=== PATIENT | male | born 1940 | race Caucasian/White ===

== ENCOUNTER → 2021-04-02 14:08 | Outpatient (BNVA) | payer MEDICARE, SELFPAY | PROVIDERS: PCP Internal Medicine; Visit Provider Surgery | DX: K40.90 Unilateral inguinal hernia, without obstruction or gangrene, not specified as recurrent (principal) | CPT/HCPCS: 99212 ==

== ENCOUNTER 2021-05-13 07:24 | Day surgery (SDC) | payer MEDICARE, SELFPAY ==
[2021-05-07 10:07] VITALS: BMI 27.3
--- NOTE | 2021-05-12 10:16 | P.CONAN_ITS ---
Documented by User: Aubrie Sal NP 05/12/21 10:17 HPI - Anesthesia Eval Consult details Narrative: 81yo M for Left Hernia Repair Inguinal PMFSH Active Problems Active Problems: All Active Problems (Updated 05/07/21 @ 10:06 by Audrey Cabrera RN) Left inguinal hernia (Acute) Past Medical History Medical History (Updated 05/07/21 @ 10:06 by Audrey Cabrera RN) Anxiety and depression Arthritis BPH (benign prostatic hyperplasia) Elevated cholesterol HTN (hypertension) Left inguinal hernia Surgical History Surgical History (Updated 05/07/21 @ 10:06 by Audrey Cabrera RN) History of right inguinal hernia repair Hx of colonoscopy Hx of repair of rotator cuff Hx of total knee arthroplasty Social History Social History (Updated 05/07/21 @ 10:07 by Audrey Cabrera RN) Alcohol intake: current Alcohol intake frequency: a few times a week Alcohol type: beer Patient Tobacco Use Status: Former Tobacco user Quit Date: Are you DNR?: No Advance Directives: No (will bring copy dos) Advance Directives Information Provided: No Advance Directives on File: No Recently lost weight without trying: No Poor oral hygiene: No (full dentures) Meds Allergies Allergy/AdvReac Type Severity Reaction Status Date / Time Vicodin AdvReac Intermediate itching Uncoded 05/13/21 08:29 Home Medications Medication Instructions Recorded Confirmed Last Taken Type atorvastatin 40 mg tablet 40 mg PO DAILY 04/02/21 05/07/21 Unknown History escitalopram oxalate 5 mg tablet 5 mg PO DAILY 04/02/21 05/07/21 Unknown History gabapentin 600 mg tablet 600 mg PO TID PRN 04/02/21 05/07/21 Unknown History lisinopril 40 mg tablet 40 mg PO DAILY 04/02/21 05/07/21 Unknown History tamsulosin 0.4 mg capsule 0.4 mg PO DAILY 04/02/21 05/07/21 Unknown History trazodone 50 mg tablet 25 - 50 mg PO BEDTIME PRN 04/02/21 05/07/21 Unknown History Exam Exam Date and Time: May 12, 2021 1016 Height,Weight and Vital Signs: Height 5 ft 8 in Weight 81.647 kg Assessment and Plan Assessment Anesthesia Assessment: Chart Reviewed Documented by User: Brady Hidalgo MD 05/13/21 08:37 [facility] Past Medical History Medical History (Updated 05/07/21 @ 10:06 by Audrey Cabrera RN) Anxiety and depression Arthritis BPH (benign prostatic hyperplasia) Elevated cholesterol HTN (hypertension) Left inguinal hernia Family History Family history of problems with anesthesia: No Surgical History Surgical History (Updated 05/07/21 @ 10:06 by Audrey Cabrera RN) History of right inguinal hernia repair Hx of colonoscopy Hx of repair of rotator cuff Hx of total knee arthroplasty History of Problems with Anesthesia: No Social History Social History (Updated 05/07/21 @ 10:07 by Audrey Cabrera RN) Alcohol intake: current Alcohol intake frequency: a few times a week Alcohol type: beer Patient Tobacco Use Status: Former Tobacco user Quit Date: Are you DNR?: No Advance Directives: No (will bring copy dos) Advance Directives Information Provided: No Advance Directives on File: No Recently lost weight without trying: No Poor oral hygiene: No (full dentures) Meds Allergies Allergy/AdvReac Type Severity Reaction Status Date / Time Vicodin AdvReac Intermediate itching Uncoded 05/13/21 08:29 Home Medications Medication Instructions Recorded Confirmed Last Taken Type atorvastatin 40 mg tablet 40 mg PO DAILY 04/02/21 05/07/21 Unknown History escitalopram oxalate 5 mg tablet 5 mg PO DAILY 04/02/21 05/07/21 Unknown History gabapentin 600 mg tablet 600 mg PO TID PRN 04/02/21 05/07/21 Unknown History lisinopril 40 mg tablet 40 mg PO DAILY 04/02/21 05/07/21 Unknown History tamsulosin 0.4 mg capsule 0.4 mg PO DAILY 04/02/21 05/07/21 Unknown History trazodone 50 mg tablet 25 - 50 mg PO BEDTIME PRN 04/02/21 05/07/21 Unknown History Exam Airway Mallampati Class: I TM Dist: >3cm Neck ROM: Full Denture: Upper Partial: Lower Heart: ok Lungs: ok Assessment and Plan Final Anesthetic Review Family History of Problems with Anesthesia: No History of Problems with Anesthesia: No ASA Class: III Final Preanesthetic Review: No Changes in Pt Med Stat, Meds/Allgs Chart Reviewed, Consent Obtained/Reviewed and Anes Risks/Benef Reviewed Patient Risk: Intermediate Procedure Risk: Low Anesthetic Plan Anesthetic Plan: GA and Agree w/ Assess. and Plan Disposition: Standard PACU
[2021-05-13] VITALS (14 sets, daily range): BP systolic 80–152; BP diastolic 44–82; PULSE 38–67; RESP 10–18; TEMP 36.2–36.8; O2SAT 91–97; BMI 27.5
[2021-05-13] MEDS: Lactated Ringers 1,000 ML 100 ML IVCONT (07:45)
--- NOTE | 2021-05-13 08:14 | MHC.SHP ---
Pre-Procedural Eval Section A Date of Service: 05/13/21 Section B Chief Complaint: Left Inguinal hernia Details of Present Illness: reducible mass on left groin cw inguinal hernia Relevant Family History (Specify if Yes): No Relevant Social History: None Present Medications: see Short Stay Collaborative assessment Medical History: Significant History (HTN, BPH, hyperlipidemia) History of Previous Operations: No relevant previous surgery Allergies: Allergies Allergy/AdvReac Type Severity Reaction Status Date / Time Vicodin Allergy Intermediate itching Uncoded 05/07/21 10:11 Review of Systems Sugical H&P ROS: Negative: Constitution, Cardiovascular, Respiratory, Neurological, Psychiatric, Hem-Onc, Allergic/Immunologic, Gastrointestinal, Genitourinary, Musculoskeletal, Integumentary, Endocrine and Eyes/Ears/Nose/Throat Exam Surgical H&P Exam: Normal: HEENT, Normal: Heart, Normal: Lungs, Normal: Extremities, Normal: Skin and Normal: Neurological and Significant Findings: Abdomen (Reducible mass, left groin) Plan Diagnosis/Plan: Unchanged I have reviewed the history and physical and performed a pertinent physical examination on my patient. No changes have occurred unless specified.
--- NOTE | 2021-05-13 09:26 | P.OP_ITS ---
Operative Note Operative Note Date of Service: 05/13/21 Narrative: Preop diagnosis: Left inguinal hernia Postop diagnosis: Left inguinal hernia, indirect Procedure: Repair of left inguinal hernia, with mesh Surgeon: Jayme Butterfield MD orthopedic assistant: MORENA Foley The patient is an 81-year-old male with a reducible mass on the left groin consistent with a left inguinal hernia. He wanted to proceed with repair. He understood the technique of repair with mesh. He was for the risks, benefits, and alternatives Was brought the operating placed supine the table under general anesthesia laryngeal mask airway. The left groin was prepped and draped in the usual steri le fashion. A surgical time-out was done. The patient received cefazolin 2 g IV preoperatively. I infiltrated the planned line of incision using lidocaine 1%. I made a short incision in the skin along an imaginary line from the anteriorsuperior iliac spine to the pubic ramus using blade 15. This was carried down through the full- thickness skin subcutaneous fat with electrocautery down to the external oblique aponeurosis. I exposed the external oblique aponeurosis and bluntly dissected this to define the external ring. I made an incision on the bursa of the external oblique aponeurosis using blade 15. This extended inferomedially to connect with the external ring. The inguinal canal was therefore entered. Applied hemostats on the edges of the divided external oblique aponeurosis. I bluntly dissected the underside of the aponeurosis to create space for the mesh. I then proceeded to bluntly dissect the spermatic cord and its contents using my index finger until was able to pass a Jose drain around this. This Jose drain was used for retraction. I examined the spermatic cord and its contents. I was able to identify the vas deferens and its accompanying vessels. By blunt dissection, as able to identify the sac on the anteromedial aspect. I proceeded to carefully separate the sac from the rest of the cord contents with blunt dissection until was able to completely reduce this to the internal ring. This was therefore an indirect hernia I reinforced the internal ring with the Prolene plug. The plug was secured with Prolene 2-0 sutures to the shelving edge of the inguinal ligament laterally and the internal oblique superiorly medially using the inner leaves of the plug. I reinforced the floor of the canal with a keyhole mesh. The tails of the mesh were passed around the cord at the level of the internal ring. The tails were secured with Prolene 2-0 sutures. I then proceeded to secure the the mesh to the shelving edge of the inguinal and laterally, the internal oblique superiorly and medially as well as the pubic ramus inferomedially using Prolene 2-0 sutures as well. I irrigated. I observed for hemostasis. Once hemostasis was ensured, I pro ceeded to then close the external oblique aponeurosis a running Dexon 2-0 stitch to re-create the external ring. The subcutaneous layer was reapposed with Dexon 3-0 interrupted sutures. Skin closure was achieved with Dexon 4-0 subcuticular running sutures. Steri-Strips and dressings were applied. The incision was infiltrated with Marcaine 0.5% for postop analgesia and the procedure was completed. The patient tolerated the procedure well. There were no complication noted. Initial and final counts of sponges and instruments were correct. Estimated blood loss was less than 5 cc The patient was extubated without difficulty and transferred to the recovery room with stable vital signs.
[2021-05-13] MEDS: Atropine Sulfate 1 MG/10 ML SYRINGE 0.6 MG IVPUSH (10:05)
[2021-05-13] MEDS: Acetaminophen 325 MG TABLET 650 MG PO (10:11)
[2021-05-13] MEDS: oxyCODONE HCl Immed Release 5 MG TABLET PO (10:12)
== END 2021-05-13 12:30 | disposition home or self-care (01) ==
PROVIDERS: PCP Internal Medicine; Visit Provider Surgery
PROC: (CPT 49505; principal; 2021-05-13 09:10)
DX: K40.90 Unilateral inguinal hernia, without obstruction or gangrene, not specified as recurrent (principal); I10 Essential (primary) hypertension; E78.5 Hyperlipidemia, unspecified; N40.0 Benign prostatic hyperplasia without lower urinary tract symptoms; Z79.899 Other long term (current) drug therapy; Z88.8 Allergy status to other drugs, medicaments and biological substances
CPT/HCPCS: 49505; C1781; J0461; J0690; J1100; J2250; J2405; J3010

== ENCOUNTER → 2021-05-26 13:19 | Outpatient (BNVA) | payer MEDICARE, SELFPAY | PROVIDERS: PCP Internal Medicine; Visit Provider Surgery | DX: Z48.815 Encounter for surgical aftercare following surgery on the digestive system (principal); Z87.19 Personal history of other diseases of the digestive system | CPT/HCPCS: 99212 ==